=== PATIENT | female | born 2000 | race Caucasian/White ===

== ENCOUNTER 2024-06-05 15:49 | Emergency (ER) | payer OTHER, SELFPAY ==
--- OUTSIDE RECORDS SUMMARY | 2024-06-05 15:57 | XMS_ITS | Encounter Summary ---
Author Organization [facility] Address [address] [place] [address] Phone Care Team Providers Care Technical Training Instructor Name Role Phone Jasmina Serna APRN, CNP Primary Care Provid er Reason for Referral * Radiology Services (Routine) - Closed Specialty Diagnoses / Procedures Referred By Contac t Referred To Contact Radiology Diagnoses Chest pain, unspecified type Procedures XR CHEST 2 VIEWS Jasmina Serna APRN, CNP [address] [facility] [address] [place] [address] Phone: tel: fax: Referral ID Status Reason Start Date Expiration Date Visits Re quested Visits Authorized [id number] Closed 07/03/2021 1 1 Encounter Details Date Type Department Care Team (Late st Contact Info) Description 07/03/2021 Transcribe Orders [facility] Patient Access Admitting [address] [place] [address] Jasmina Serna APRN, CNP [address] [facility] [address] [place] [id number] Chest pain, unspecified type (Primary Dx) Social History Tobacco Use Types Packs/Day Years Used Date Smoking Tobacco: Never Assessed Comments Unknown Sex and Gender Information Value Date Recorded Sex Assigned at Not on file Legal Sex Female 11:04 PM CDT Gender Identity Not on file Sexual Orientation Not on file COVID-19 Exposure Response Date Recorded In the last 10 days, have yo u been in contact with someone who was confirmed or suspected to have Coronavirus/COVID-19? No / Unsure 07/02/2021 4:50 PM CDT documented as of this encounter Plan of Treatment Scheduled Orders Name Type Priority Associated Diagnoses Orde r Schedule XR CHEST 2 VIEWS Imaging Routine Chest pain, unspecified type Expected: 07/03/2021, Expires: 07/03/2022 documented as of this encounter Visit Diagnoses Diagnosis Chest pain, unspecified type- Primary documented in this encounter Additional Health Concerns Infection Onset Date Last Indicated Resolved Time COVID - 19 09/05/2021 09/05/2021 09/15/2021 12:1 6 AM CDT documented as of this encounter Care Teams Technical Training Instructor Relationship Specialty Start Date End Date Jasmina Serna I, SOLAR SYSTEMS DESIGNER, FRUIT OR NUT CROPS FARM MANAGER [address] [facility] [address] [place] [id number] PCP - General Advanced Practice Nurse 07/02/21 documented as of this encounter
--- OUTSIDE RECORDS SUMMARY | 2024-06-05 15:57 | XMS_ITS | Clinical Summary ---
Author Organization [facility] Address [address] [place] [address] Phone Care Team Providers Care Climatology Professor Name Role Phone Jasmina Serna APRN, CNP Primary Care Provid er Allergies Active Allergy Reactions Criticality Noted Date Comments Dust Mite Extract Other (see Comments) 04/26/19 14 Sneezing/ itching eyes Medications SUMAtriptan (IMITREX) 25 MG Tablet 1 tab PO prn severe headaches; may repeat in 2-4 H if no relief. No more than 2 tabs in 24H. 11/04/2016 Active Junel FE 04/12 1-20 MG-MCG Tablet Take 1 Tablet by mouth daily. 06/29/2021 Active famotidine (PEPCID) 20 MG Tablet TAKE 1 TABLET BY MOUTH TWICE A DAY BEFORE MEALS 07/02/2021 Active Active Problems Problem Noted Date Diagnosed Date Dysmenorrhea 06/30/2020 Sleep disturbance 10/30/2015 Chronic daily headache 04/17/2015 Overview (09/05/2021): Last Assessment & Plan: Headaches have improved and not as frequent or disabling. Will reduce amitriptyline dose as noted below and anticipate to wean her off the med at the time of her next visit. 1. Keep headache diary 2. Maintain active lifestyle 3. Eat healthy diet, and do not skip meals 4. Drink plenty of water, and avoid caffeine regularly. 5. Sleep: 1. Maintain good sleep routine. 2. Avoid distractions at bedtime such as TV, computer. 3. Get at least 8-10 hours of sleep nightly 6. Do not use pain medication (such as Tylenol, Ibuprofen) more than 2 times/week in order to avoid medication overuse headaches 7. Use analgesics as needed only for moderate-severe headaches. 8. Reduce amitriptyline 10 mg tabs to 2 tabs (20 mg) at bedtime. Take regularly and as prescribed. 9. Call in the interim for any worsening headaches, or other neurological concerns Dizziness and giddiness 04/17/2015 Overview (09/05/2021): Last Assessment & Plan: Dizziness/light headedness likely from relatively poor hydration. 1. Check orthostatics in the office today. 2. Encourage aggressive hydration. 3. Can try to increase salt intake. Immunizations Immunization Administration Dates Next Due Covid-19, Mrna, Lnp-s, PF, 1 00 mcg/0.5 mL Dose (Moderna) 07/31/2020,07/03/2020 DTAP VACCINE 02/25/2001, 1,03/20/2000,01/13 DTAP VACCINE, UNSPECIFIED FORMULATION 2004 HEP B/HIB Combined Vaccine 05/21/2000,01/14/2000 Hepatitis A Vaccine, Pediatric/adolescent, 2 Dose Schedule 10/13/2006,2004 Hepatitis B Vaccine, Pediatric/adolescent 1999 Hib Vaccine,unspecified Formulation 02/25/2001,1 1999 Human Papillomavirus Vaccine (HPV), quadrivalent 05/30/2014,01/25/2014,11/19/2013 Inactivated Polio Vaccine 2004,,03/20/2000,01/13 Influenza Vaccine Nasal 02/07/2012 Influenza Vaccine Quadrivalent Nasal 01/25/2014 Influenza Vaccine, Quadrivalent, PF 02/04/2020,0 04/16/2013 Influenza Vaccine,unspecifie d Formulation 12/27/2016 MMR Vaccine 2004,11/20/2000 Meningococcal Group B OMV 01/27/2017,12/27/2016 Meningococcal MCV4O 11/18/2012 Meningococcal Vaccine 11/17/2015 Pneumococcal Vaccine Peds - 7 Valent 11/20/2000, 08/05/2000,05/21/2000 TB Skin Test 12/14/2020,11/27/2019,11/13/2019 TDAP Vaccine 11/18/2012 Varicella Vaccine Live 04/14/2007,12/26/2000 Social History Tobacco Use Types Packs/Day Years Used Date Smoking Tobacco: Never Smokeless Tobacco: Never Comments No Sex and Gender Information Value Date Recorded Sex Assigned at Not on file Legal Sex Female 11:04 PM CDT Gender Identity Not on file Sexual Orientation Not on file Last Filed Vital Signs Vital Sign Reading Time Taken Comments Blood Pressure 112/60 09/05/2021 3:14 PM CDT Pulse 116 09/05/2021 3:14 PM CDT Temperature 38.2 C (100.7 F) 09/05/2021 3:14 PM CDT Respiratory Rate 20 09/05/2021 3:14 PM CDT Oxygen Saturation 98% 09/05/2021 3:14 PM CDT Inhaled Oxygen Concentration - - Weight 49.9 kg (110 lb) 09/05/2021 3:14 PM CDT Height - - Body Mass Index - - Plan of Treatment Health Maintenance Due Date Last Done Comments Hepatitis C Virus (HCV) Screening 2000 Pap Smear 11/13/2020 DTaP/Tdap/Td Immunization (7 - Td or Tdap) 11/18/2022 11/18/2012, 2004, 02/25/2001, Additional history exists Influenza Immunization (#1) 11/23/202301/22, 02/04/2020, 12/27/2016, Additional history exists SARS-COV-2 Immunization ( season) 2023 04/30/2021, 07/31/2020, 07/03/2020 Respiratory Syncytial Virus (RSV) Immunization (Adult) (1 - 1-dose 75+ series) 11/13/2074 Hepatitis B Immunization Completed 001, 01/14/2000, 1999 Pneumococcal Immunization Combined Aged Out 11/20/2000, 08/05/2000, 05/21/2000 No longer eligible based on patient's age to complete this topic Human Papillomavirus (HPV) Immunization Completed 05/30/2014, 01/25/2014, 11/19/2013 Meningococcal Immunization (ACWY) Completed 11/17/2015, 11/18/2012 Meningococcal B Immunization Discontinued 01/27/2017, 12/27/2016 Rotavirus Immunization Aged Out No lo nger eligible based on patient's age to complete this topic Insurance MEDICAID [employer] Care Teams Climatology Professor Relationship Specialty Start Date End Date Jasmina Serna APRN, GUN FERTILIZER [address] [facility] [address]Z [address] [place] [id number] PCP - General Advanced Practice Nurse 07/02/21
--- OUTSIDE RECORDS SUMMARY | 2024-06-05 15:57 | XMS_ITS | Referral Summary ---
Author Organization [facility] Address [address] [place] [address] Care Team Providers Care Curator Medical Museum Name Role Phone Adonay iHcks MD Primary Care Provider [phone] Source Comments [facility],non-owned Affiliates and Associated Physician Practices is amultiple site organization consisting of ambulatory clinics and hospital sitesin [place], [place], [place] and [place]. This disclosure is being madepursuant to the Care Everywhere program and may not contain all information available regarding this patient. Last updated 17.[facility] Allergies Active Allergy Reactions Criticality Noted Date Comments Dust Mite Extract Eye Itching 04/26/2013 sneezing Medications * Be aware that medications may not be up to date on this document. Alwaysverify current medications with the patient. Medication Sig Dispensed Refills Start Date End Date Status SUMAtriptan (IMITREX) 25 MG tabletIndications:Chicken Cleaner katharine daily headache 1 tab PO prn severe headaches; may repeat in 2-4 H if no relief. No more than 2 tabs in 24H. 9 Tab 2 11/04/2016 Active naproxen sodium (ANAPROX DS) 550 MG tabletIndications:Chicken Cleaner katharine daily headache Take 1 Tab by mouth 2 times daily as needed for Pain (moderate-severe headaces) 12 Tab 3 11/04/2016 Active Active Problems Problem Noted Date Diagnosed Date Sleep disturbance 10/30/2015 Chronic daily headache 04/17/2015 Assessment & Plan (11/04/2016 3:07 PM CDT): Headaches have improved and not as frequent [...] any worsening headaches, or other neurological concerns Assessment & Plan (05/06/2016 4:32 PM BOOSTER ASSEMBLER): Headaches have improved overall with improvement sin lifestyle, particularly sleep. Also has worked on improving coping skills. 1. Keep headache diary 2. Maintain active lifestyle - encourage starting with exercises as taught by PT prior to starting soccer season, to improve physical tolerability. 3. Eat healthy diet, and do not [...] order to avoid medication overuse headaches 7. May take Imitrex 25 mg tabs - 1 tab as needed for moderate-severe headaches. May repeat in 2-4 hours if no relief. No more than 2 tabs in 24 hours. 8. Continue with comfort measures for milder headaches. 9. Continue with amitriptyline 10 mg tabs - 3 tabs (30 mg) at bedtime. Take regularly and as prescribed. 10. Call in 4-6 weeks with update regarding headaches, sooner for concerns Assessment & Plan (10/30/2015 3:02 PM CDT): Chronic daily headaches,mostly tension type, worsened by lifestyle issues, likely sleep issues; tightened neck muscles which can be trigger points for the headaches. 1. Keep headache diary 2. Maintain active lifestyle 3. Eat healthy diet, and do not skip meals 4. Drink plenty of water, and avoid caffeine regularly. 5. Sleep: 1. Maintain good sleep routine. 2. Avoid distractions at bedtime such as TV, computer. 3. Get at least 8-10 hours of sleep nightly 4. Check iron level today in view of sleep related restlessness, excess fatigue. 6. Do not use pain medication (such as Tylenol, Ibuprofen) more than 2 times/week in order to avoid medication overuse headaches 7. Can try Imitrex 25 mg tabs - for more intense pain - 1 tab as needed for headaches. May repeat in 2-4 hours if no relief. No more than 2 tabs in 24 hours. 8. Continue with Amitriptyline 10 mg tabs - 3 tabs (30 mg) at bedtime. Take regularly and as prescribed. 9. Hand out on progressive muscle relaxation to relax neck muscles and refer to PT again. 10. Call in 4-6 weeks with update regarding headaches, sooner for concerns Assessment & Plan (04/17/2015 1:59 PM BOOSTER ASSEMBLER): Chronic daily headache, mostly tension type worsened by several lifestyle issues such as poor diet, hydration, sleep, neck muscle tightness and medication overuse. 1. Keep headache diary 2. Maintain active lifestyle 3. Eat healthy diet, and do not skip meals. Eat breakfast regularly. 4. Drink plenty of water, and avoid caffeine regularly. 5. Sleep: 1. Maintain good sleep routine. 2. Avoid distractions at bedtime such as TV, computer. 3. Get at least 8-10 hours of sleep nightly 4. Improve nighttime sleep - take Amitriptyline earlier and sleep it off. 5. Reduce daytime naps. 6. Do not use pain medication (such as Tylenol, Ibuprofen) more than 2-3 times/week in order to avoid medication overuse headaches 7. Use Anaprox DS 550 mg twice a day as needed only for headaches - take at onset of headache 8. Continue Amitriptyline 25 mg at bedtime. Take regularly and as prescribed. 9. Refer to Physical Therapy for neck muscle tightness. 10. Call in 3 weeks with update regarding headaches, sooner for concerns. Dizziness and giddiness 04/17/2015 Assessment & Plan (04/17/2015 2:01 PM BOOSTER ASSEMBLER): Dizziness/light headedness likely from relatively poor hydration. 1. Check orthostatics in the office today. 2. Encourage aggressive hydration. 3. Can try to increase salt intake. Social History Tobacco Use Types Packs/Day Years Used Date Smoking Tobacco: Never Smokeless Tobacco: Never Alcohol Use Standard Drinks/Week Comments No 0 (1 standard drink = 0.6 oz pur e alcohol) Sex and Gender Information Value Date Recorded Sex Assigned at Not on file Gender Identity Not on file Sexual Orientation Not on file Last Filed Vital Signs Vital Sign Reading Time Taken Comments Blood Pressure 110/72 11/08/2016 12:15 PM CDT Pulse 98 11/08/2016 12:15 PM CDT Temperature 37.4 C (99.3 F) 11/08/2016 12:15 PM CDT Respiratory Rate - - Oxygen Saturation - - Inhaled Oxygen Concentration - - Weight 48.1 kg (106 lb) 11/08/2016 12:15 PM CDT Height 159.4 cm (5' 2.75 ) 11/08/2016 12:15 PM C DT Body Mass Index 18.93 11/08/2016 12:15 PM CDT Plan of Treatment Not on file Care Teams Curator Medical Museum Relationship Specialty Start Date End Date Adonay Hicks MD [address] [place] [id number] PCP - General Pediatrics 04/23/13
--- OUTSIDE RECORDS SUMMARY | 2024-06-05 15:57 | XMS_ITS | Clinical Summary ---
Author Organization [facility] Address [address] [place] [address] Care Team Providers Care Advanced Manufacturing Technician Name Role Phone Jasmina Kerr NP Primary Care Provider [phone] Allergies Active Allergy Reactions Criticality Noted Date Comments Mite Extract Eye irritation,Other (See comments) Low 04/26/2013 sneezing Sneezing/ itching eyes Medications [facility] .5, 28, 1.5 mg-30 mcg (21)/75 mg (7) per tabletIndications: Dysmenorrhea,Pregn irina Contraception Take 1 tablet by mouth daily 84 tablet 3 4 Active Active Problems Problem Noted Date Diagnosed Date Encounter for surveillance of contraceptive pill s 11/26/2022 Assessment & Plan (11/26/2022 4:37 PM CDT): Doing well on current OC. Encouraged patient to continue to monitor cycles. If she experiences an increase in breakthrough bleeding or if menses starts during active pills, we will plan to try a different MAKENNA to ensure efficacy. For now she will continue 04/12. Will wait to refill OC at this time as patient has 2 packs left at home. Dysmenorrhea 06/30/2020 Encounters Date Type Department Care Team Description 03/18/2024 6:51 PM MANAGER OF OPERATIONS - 03/18/2024 11:59 PM MANAGER OF OPERATIONS [place] [address] Screening for STDs (sexually transmitted diseases); Well woman exam Discharge Disposition: Discharge to home or self care 03/18/2024 9:15 AM MANAGER OF OPERATIONS Office Visit [facility] [address] [place] [address] [address] [place] [address] Jessica Burkett NP Well woman exam (Primary Dx); Screening for STDs (sexually transmitted diseases) from Last 3 Months Social History Tobacco Use Types Packs/Day Years Used Date Smoking Tobacco: Never Smokeless Tobacco: Never Tobacco Cessation:Counseling Given: Not Answered AUDIT-C Answer Date Recorded Q1: How often do you have a drink containing alc ohol? Never 06/30/2020 Average Number of Drinks Not on file 021 Frequency of Binge Drinking Not on file 11/2020 PHQ-2 Answer Date Recorded PHQ-2 Total Score (If total score is 3 or more points, staff should administer the PHQ-9) 0 03/18/2024 Comments No Sex and Gender Information Value Date Recorded Sex Assigned at Not on file Legal Sex Female 11:34 AM MANAGER OF OPERATIONS Gender Identity Female 01/26/2023 9:48 AM MANAGER OF OPERATIONS Sexual Orientation Bisexual 01/26/2023 9: 48 AM MANAGER OF OPERATIONS Obstetrics History Para Term AB IAB SAB Ectopic Multiple Livin g Live Births 0 0 0 0 0 0 0 0 0 0 0 Last Filed Vital Signs Vital Sign Reading Time Taken Comments Blood Pressure 112/68 03/18/2024 9:12 AM MANAGER OF OPERATIONS Pulse 78 11/26/2022 1:38 PM CDT Temperature - - Respiratory Rate 18 12/07/2021 2:03 PM CDT Oxygen Saturation - - Inhaled Oxygen Concentration - - Weight 50.5 kg (111 lb 6.4 oz) 03/18/2024 9:12 A M MANAGER OF OPERATIONS Height 157.5 cm (5' 2 ) 03/18/2024 9:12 AM MANAGER OF OPERATIONS Body Mass Index 20.38 03/18/2024 9:12 AM MANAGER OF OPERATIONS Plan of Treatment Health Maintenance Due Date Last Done Comments Hepatitis C Screening 1999 DTaP/Tdap/Td Vaccine (7 - Td or Tdap) 11/18/2022 11/18/2012, 2004, 02/25/2001, Additional history exists Covid-19 Vaccine (3 2023-2 5 season) 2023 07/31/2020, 07/03/2020 Influenza Vaccine (#1) 2023 , 12/27/2016, 01/25/2014, Additional history exists Cervical Cancer Screening 03/18/20252023, 11/26/2022, 10/30/2021 Chlamydia and Gonorrhea (GC/ CT) Screening 03/18/2025 03/18/2024, 10/30/2021, 08/01/2021 Depression Screening 03/18/2025 03/18/2024, 11/26/2022, 10/30/2021, Additional history exists Regular Well Visit/Exam 18-64 03/18/2025, 11/26/2022, 10/30/2021 Hepatitis B Screening Completed 05/21/2000 , 01/14/2000, 1999 Pneumococcal vaccine <65 Completed 001, 08/05/2000, 05/21/2000 Varicella Vaccines Completed 04/14/2007, 12/26/2000 HPV Vaccines Completed 05/30/2014, 06/2013, 11/19/2013 Procedures Procedure Name Priority Date/Time Associated Diagnosis Comments THINPREP PROCESSING (MOLECULAR COMPONENT) Routine 03/18/2024 9:45 AM MANAGER OF OPERATIONS Well woman exam N. GONORRHOEAE/C. TRACHOMATIS AMPLIFICATION Routine 03/18/2024 9:45 AM MANAGER OF OPERATIONS PAP WITH REFLEX TO HIGH RISK HPV Routine 03/18/2024 8:36 AM MANAGER OF OPERATIONS Well woman exam from Last 3 Months Results * ThinPrep processing (Molecular component) (03/18/2024 9:45 AM MANAGER OF OPERATIONS) ThinPrep processing (Molecular component) Specimen received for processing. [facility] Comment:Testing performed by : [facility], [address] [place]., [address] Endocervical 03/18/2024 9:45 AM MANAGER OF OPERATIONS 03/19/2024 11:05 AM MANAGER OF OPERATIONS Jessica Burkett NP LAB BODY FLUIDS AND STOOLS ORDER ROSA Final Result Performing Organization Address City/[facility]/ZIP Co de Phone Number [facility] [address] [place] [address] BJ * N. gonorrhoeae/C. trachomatis Amplification Thin prep-Endocervical (03/18/2024 9:45 AM MANAGER OF OPERATIONS) C. trachomatis Not Detected [facility] Comment:Testing performed by : [facility], [address] [place]., [address] N. gonorrhoeae Not Detected [facility] Comment: Interpretive Data This assay detects Chlamydia trachomatis and Neisseria gonorrhoeae by nucleic acid amplification testing (NAAT). This assay has been cleared by the [place] Food and Drug administration. The performance characteristics of this test have been verified by the [facility] Molecular Infectious Disease laboratory. The performance characteristics of this test have not been evaluated in individuals less than 14 years of age. Current Interpretive Data was last revised on 2023. Testing performed by: [facility], [address] [place] [address]., [id number] Thin prep-Endocervica l 03/18/2024 9:45 AM MANAGER OF OPERATIONS 03/19/2024 11:05 AM MANAGER OF OPERATIONS Jessica Burkett NP LAB MICROBIOLOGY - GENERAL ORDER ROSA Final Result [facility] [address] [place] [address] [facility] * Pap with reflex to High Risk HPV and Genotyping (Cytology Component) (03/18/2024 8:36 AM MANAGER OF OPERATIONS) Thin prep (Pap test) 03/18/2024 8:36 AM MANAGER OF OPERATIONS 03/18/2024 8:36 AM MANAGER OF OPERATIONS Narrative PATHOLOGY CH - 03/22/2024 9:17 AM MANAGER OF OPERATIONS [facility] Department of Pathology [address] [place] [address] Final Report Note to Patients: This report may contain a detailed description of human tissue sent by a health care provider to the laboratory for pathologic evaluation. The content of this report is essential for diagnosis and may provide important critical findings. This information may be unfamiliar to patients to review without a medical professional present. It is advised that the patient review this report in the presence of a health care provider who can answer questions and explain the details. Patient Name: JO-ANN BRICE Address: [address] [place] [address] Gender: F : 2000 (Age: 23) Service: Location: N : [id number] Hospital #: [id number] Patient Type: SPECIMEN Taken: 03/18/2024 Received: 03/18/2024 Accessioned:: 03/19/2024 Reported: 03/22/2024 Physician(s): RASHID Laird FNP Diagnosis: SOURCE OF SPECIMEN Imaged Thinprep Pap Test w/ Reflex HPV - Pneudraulic Systems Mechanic Cytologic Material: STATEMENT OF ADEQUACY - Specimen satisfactory for interpretation; endocervical/transformation zone component absent or insufficient GENERAL CATEGORIZATION: - Negative for intraepithelial lesion or malignancy BERTHA Vincetn(ASCP) Report Electronically Reviewed and Signed Out By BERTHA Vincent(ASCP) 03/22/2024 09:17:13Specimen(s) Received: A: Imaged Thinprep Pap Test w/ Reflex HPV - Pneudraulic Systems Mechanic Cytologic Material Clinical History: Last Menstrual Period: 03/02/24 The Pap test is a screening test used to aid in the detection of cervical cancer and its precursors. It should not be the sole means by which malignant and premalignant lesions are diagnosed. Both false negative and false positive results may occur. It also has poor sensitivity for the detection of endometrial lesions and should not be used to evaluate suspected endometrial abnormalities. For these reasons it is most important to obtain Pap tests at regular intervals. The performance characteristics of some immunohistochemical stains, fluorescence in-situ hybridization tests and immunophenotyping by flow cytometry cited in this report (if any) were determined by the Surgical Pathology Department at [facility] as part of an ongoing manufacturing quality inspector program and in compliance with federally mandated regulations drawn from the Clinical Laboratory Improvement Act of 1988 (CLIA '88). Some of these tests rely on the use of analyte specific reagents and are subject to specific labeling requirements by the [place] Food and Drug Administration. Such diagnostic tests may only be performed in a facility that is certified by the Department of Health and Human Services as a high complexity laboratory under CLIA '88. The FDA has determined that such clearance or approval is not necessary. This test is used for clinical purposes. It should not be regarded as investigational or for research. Nevertheless, federal rules concerning the medical use of analyte specific reagents require that the following disclaimer be attached to the report: This test was developed and its performance characteristics determined by the Surgical Pathology Department [facility]. It has not been cleared or approved by the U. S. Food and Drug Administration. Jessica Burkett NP LAB CYTOLOGY ORDERABLES Final [facility] Organization Address City/State/[facility] Co de Phone Number PATHOLOGY [address] [place] [address] from Last 3 Months Insurance [facility] Care Teams Advanced Manufacturing Technician Relationship Specialty Start Date End Date Jasmina Kerr NP [address] [facility] [address] [address] [place] [address] PCP - General Family Medicine 07/13/21
--- OUTSIDE RECORDS SUMMARY | 2024-06-05 15:57 | XMS_ITS | Patient Health Summary ---
Author Organization [facility] Address [address] [place] [address] Care Team Providers Care Fur Glosser Name Role Phone Adonay Hicks MD Primary Care Provider Note from [facility],non-owned Affiliates and Associated Physician Practices is amultiple site organization consisting of ambulatory clinics and hospital sitesin [place], [place] and [place]. This disclosure is being madepursuant to the Care Everywhere program and may not contain all information available regarding this patient. Last updated 17.[facility] Allergies * Dust Mite Extract(Eye Itching) Medications * Be aware that medications may not be up to date on this document. Alwaysverify current medications with the patient. * SUMAtriptan (IMITREX) 25 MG tablet(Started 11/04/2016) 1 tab PO prn severe headaches; may repeat in 2-4 H if no relief. No more than 2 tabs in 24H. 2 refills remaining * naproxen sodium (ANAPROX DS) 550 MG tablet(Started 11/04/2016) Take 1 Tab by mouth 2 times daily as needed for Pain (moderate-severe headaces) 3 refills remaining Active Problems Problem Noted Date Diagnosed Date Sleep disturbance 10/30/2015 Chronic daily headache 04/17/2015 Dizziness and giddiness 04/17/2015 Social History Tobacco Use Types Packs/Day Years [...] Mass Index 18.93 11/08/2016 12:15 PM CDT Procedures * FERRITIN(Performed 10/30/2015) Performed for Chronic daily headache, Sleep disturbance Results * FERRITIN (10/30/2015 3:20 PM CDT) Ferritin 22 10 - 140 ng/mL 10/30/2015 4:19 PM CDT [facility] Blood BLOOD SPECIMEN / Unknown Lab Venipuncture / Unknown 10/30/2015 3:20 PM CDT 10/30/2015 3:25 PM CDT Sarah Chávez MD LAB - CHEMISTRY CARLOS HANNON Performing Organization Address City/State/[facility] Co de Phone Number [facility] [address] [place] [address] Care Teams Fur Glosser Relationship Specialty Start Date End Date Adonay Hicks MD [address] [place] [id number] PCP - General Pediatrics 04/23/13
--- OUTSIDE RECORDS SUMMARY | 2024-06-05 15:57 | XMS_ITS | Referral Summary ---
Author Organization [facility] Address [address] [place] [address] Care Team Providers Care News Commentator Name Role Phone Jasmina Kerr NP Primary Care Provider [phone] Encounters Date Type Department Care Team Description 03/18/2024 6:51 PM AIR CREW OFFICER - 03/18/2024 11:59 PM AIR CREW OFFIC[place] [address] Screening for STDs (sexually transmitted diseases); Well woman exam Discharge Disposition: Discharge to home or self care 03/18/2024 9:15 AM AIR CREW OFFICER Office Visit [facility] [address] [place] [address] Jessica Burkett NP Well woman exam (Primary Dx); Screening for STDs (sexually transmitted diseases) from Last 3 Months Allergies Active Allergy Reactions Criticality Noted Date Comments Mite Extract Eye irritation,Other (See comments) Low 04/26/2013 sneezing Sneezing/ itching eyes Medications Arely Ray 1.5/30, 28, 1.5 mg-30 mcg (21)/75 mg (7) [...] 2 packs left at home. Dysmenorrhea 06/30/2020 Social History Tobacco Use Types Packs/Day Years [...] on file Legal Sex Female 11:34 AM AIR CREW OFFICER Gender Identity Female 01/26/2023 9:48 AM AIR CREW OFFICER Sexual Orientation Bisexual 01/26/2023 9: 48 AM AIR CREW OFFICER Last Filed Vital Signs Vital Sign Reading Time Taken Comments Blood Pressure 112/68 03/18/2024 9:12 AM AIR CREW OFFICER Pulse 78 11/26/2022 1:38 PM CDT Temperature - - Respiratory Rate 18 12/07/2021 2:03 PM CDT Oxygen Saturation - - Inhaled Oxygen Concentration - - Weight 50.5 kg (111 lb 6.4 oz) 03/18/2024 9:12 A M AIR CREW OFFICER Height 157.5 cm (5' 2 ) 03/18/2024 9:12 AM AIR CREW OFFICER Body Mass Index 20.38 03/18/2024 9:12 AM AIR CREW OFFICER Plan of Treatment Not on file Procedures Procedure Name Priority Date/Time Associated Diagnosis Comments THINPREP PROCESSING (MOLECULAR COMPONENT) Routine 03/18/2024 9:45 AM AIR CREW OFFICER Well woman exam N. GONORRHOEAE/C. TRACHOMATIS AMPLIFICATION Routine 03/18/2024 9:45 AM AIR CREW OFFICER PAP WITH REFLEX TO HIGH RISK HPV Routine 03/18/2024 8:36 AM AIR CREW OFFICER Well woman exam from Last 3 Months Results * ThinPrep processing (Molecular component) (03/18/2024 9:45 AM AIR CREW OFFICER) ThinPrep processing (Molecular component) Specimen received for processing. LOCATED WITHIN [facility] Comment:Testing performed by : [facility], [address] [place]., [address] Endocervical 03/18/2024 9:45 AM AIR CREW OFFICER 03/19/2024 11:05 AM AIR CREW OFFICER Jessica Burkett NP LAB BODY FLUIDS AND STOOLS ORDER ROSA Final Result CECIL TODD [id number] [address] Department [place] [address] LOCATED WITHIN [facility] * N. gonorrhoeae/C. trachomatis Amplification Thin prep-Endocervical (03/18/2024 9:45 AM AIR CREW OFFICER) C. trachomatis Not Detected LOCATED [facility]IN [facility] Comment:Testing performed by : [facility], [address] [place] [address]., [id number] N. gonorrhoeae Not Detected [facility] Comment: Interpretive Data This assay detects Chlamydia trachomatis and Neisseria gonorrhoeae by nucleic acid amplification testing (NAAT). This assay has been cleared by the [place] Food and Drug administration. The performance characteristics of this test have been verified by the [facility] Molecular Infectious Disease laboratory. The performance characteristics of this test have not been evaluated in individuals less than 14 years of age. Current Interpretive Data was last revised on 2023. Testing performed by: [facility], [address] [place]., [address] Thin prep-Endocervica l 03/18/2024 9:45 AM AIR CREW OFFICER 03/19/2024 11:05 AM AIR CREW OFFICER us Jessica Burkett NP LAB MICROBIOLOGY - GENERAL ORDER ROSA Final Result CECIL [address] [facility] Department [place] [address] BJ * Pap with reflex to High Risk HPV and Genotyping (Cytology Component) (03/18/2024 8:36 AM AIR CREW OFFICER) Thin prep (Pap test) 03/18/2024 8:36 AM AIR CREW OFFICER 03/18/2024 8:36 AM AIR CREW OFFICER Narrative PATHOLOGY CH - 03/22/2024 9:17 AM AIR CREW OFFICER [facility] Department of Pathology [address] [place] [address] Final Report Note to Patients: This report [...] the details. Patient Name: JO-ANN BRICE Address: [address] [place] [address] Gender: F : 2000 (Age: 23) Service: Location: N : [id number] [facility] #: [id number] Patient Type: SPECIMEN Taken: 03/18/2024 Received: 03/18/2024 Accessioned:: 03/19/2024 Reported: 03/22/2024 Physician(s): RASHID Laird FNP Diagnosis: SOURCE OF SPECIMEN Imaged Thinprep Pap Test w/ Reflex HPV - Clinical Medical Transcriptionist Cytologic Material: STATEMENT OF ADEQUACY - Specimen satisfactory for interpretation; endocervical/transformation zone component absent or insufficient GENERAL CATEGORIZATION: - Negative for intraepithelial lesion or malignancy BERTHA Vinecnt(ASCP) Report Electronically Reviewed and Signed Out By BERTHA Vincent(ASCP) 03/22/2024 09:17:13Specimen(s) Received: A: Imaged Thinprep Pap Test w/ Reflex HPV - Clinical Medical Transcriptionist Cytologic Material Clinical History: Last Menstrual Period: [...] determined by the Surgical Pathology Department at [facility] as part of an ongoing quality assurance assistant program and in compliance with federally mandated [...] characteristics determined by the Surgical Pathology Department [facility]. It has not been cleared or approved by the [place]. [place]. Food and Drug Administration. Jessica Burkett NP LAB CYTOLOGY ORDERABLES Final Re sult PATHOLOGY [address] [place] [address] from Last 3 Months Insurance [facility] Care Teams News Commentator Relationship Specialty Start Date End Date Jasmina Kerr NP [address] [place] [address] [address] PCP - General Family Medicine 07/13/21
--- OUTSIDE RECORDS SUMMARY | 2024-06-05 15:57 | XMS_ITS | Clinical Summary ---
Author Organization [facility] Address [address] [place] [address] Care Team Providers Care Fun House Operator Name Role Phone Adonay Hicks MD Primary Care Provider [phone] Source Comments [facility],non-owned Affiliates and Associated Physician Practices is amultiple site organization consisting of ambulatory clinics and hospital sitesin [place], [place], [place] and [place]. This disclosure is being madepursuant to the Care Everywhere program and may not contain all information available regarding this patient. Last updated 17.[facility] Allergies Active Allergy Reactions Criticality Noted Date Comments Dust Mite Extract Eye Itching 04/26/2013 sneezing Medications * Be aware that medications may not be up to date on this document. Alwaysverify current medications with the patient. Medication Sig Dispensed Refills Start Date End Date Status SUMAtriptan (IMITREX) 25 MG tabletIndications:Tablet Coater katharine daily headache 1 tab PO prn severe headaches; may repeat in 2-4 H if no relief. No more than 2 tabs in 24H. 9 Tab 2 11/04/2016 Active naproxen sodium (ANAPROX DS) 550 MG tabletIndications:Tablet Coater katharine daily headache Take 1 Tab by [...] concerns Assessment & Plan (05/06/2016 4:32 PM COLLAR WORKER): Headaches have improved overall with improvement sin [...] concerns Assessment & Plan (04/17/2015 1:59 PM COLLAR WORKER): Chronic daily headache, mostly tension type worsened [...] 04/17/2015 Assessment & Plan (04/17/2015 2:01 PM COLLAR WORKER): Dizziness/light headedness likely from relatively poor hydration. [...] 11/08/2016 12:15 PM CDT Plan of Treatment Health Maintenance Due Date Last Done Comments PAP SMEAR 2000 HIV SCREENING 11/13/2014 HPV VACCINE (1 - 3-dose series) 11/13/2014 CHLAMYDIA/GONORRHEA SCREENING 2015 HEPATITIS C SCREENING 11/09/2017 DTAP/TDAP/TD VACCINES (1 - Tdap) 11/13/2018 HEPATITIS B VACCINE (1 of 3 - 19+ 3-dose series) 11/13/2018 COVID-19 VACCINE (1 - 2023-2 5 season) 2023 INFLUENZA VACCINE (#1) 2023 DEPRESSION SCREENING 03/24/2024 ZOSTER VACCINE (1 of 2) 11/13/2049 HIB VACCINE Aged Out No longer eligi ble based on patient's age to complete this topic MENINGOCOCCAL (Group B) VACC INE SHARED DECISION-MAKING Aged Out No longer eligibl e based on patient's age to complete this topic MENINGOCOCCAL GROUPS A/C/Y/W VACCINE Aged Out No longer eligible b ased on patient's age to complete this topic PNEUMOCOCCAL VACCINE Aged Out No long er eligible based on patient's age to complete this topic Care Teams Fun House Operator Relationship Specialty Start Date End Date Adonay Hicks MD [address] [place] [address] PCP - General Pediatrics 04/23/13
[2024-06-05 15:58] VITALS: BP 151/80; PULSE 104; RESP 18; TEMP 37.2; O2SAT 100
--- NOTE | 2024-06-05 16:07 | ED_ITS ---
HPI - General Adult General Chief complaint: Upper Respiratory Infection Stated complaint: Sore Throat Time Seen by Provider: 06/05/24 16:09 Source: patient, RN notes reviewed and old records reviewed Mode of arrival: ambulatory Limitations: no limitations History of Present Illness HPI narrative: 23 year old female presents to [facility] care with complaints of sore throat for the past 6 days that did get a little better and then for the past 2 days pain has gotten worse to her throat, Patient reports that she has had some sinus congestion, denies any cough and unknown if fevers since she has been taking DayQuil pretty much around the clock. Patient reports no know ill exposure. Patient reports that she has pain and swelling to the lymph nodes in her neck which are painful. MD complaint: sore throat Onset (ago): day(s) (6) Severity: moderate Treatments prior to arrival: other (DayQuil) Related Data Allergies Allergy/AdvReac Type Severity Reaction Status Date / Time No Known Allergies Allergy Verified 06/05/24 16:02 Review of Systems Review of Systems: CONSTITUTIONAL: Reports malaise,no chills, sweats, or known fever. EYES: Denies visual changes, redness, or discharge. ENT: Reports rhinorrhea, congestion, sinus pain, otalgia and sore throat. CARDIOVASCULAR: Denies chest pain, palpitations, or edema. RESPIRATORY: Reports cough.? Denies dyspnea. GASTROINTESTINAL: Denies abdominal pain, nausea, vomiting, diarrhea SKIN: Denies rash or itching. MUSCULOSKELETAL: Denies myalgia. NEUROLOGIC: Denies headache. All systems reviewed & are unremarkable except as noted in HPI and below PMFSH Social History Social History (Updated 06/07/24 @ 11:12 by Violet Fagan NP) Smoking status: Never smoker Alcohol intake: never Substance use: never Living arrangements: with family Gender identity (if verbalized by the patient): Female Comments At time of signature, agree with nursing past medical, surgical, social and family history. There is no relevant family history pertinent to the presenting complaint Exam Narrative: GENERAL: Ill-appearing, well-nourished, and in no acute distress. HEAD: Normocephalic EYES: PERRLA, conjunctivae clear ENT: Nares clear, turbinates edematous and erythematous, clear discharge. Mucous membranes moist. TM [place] with dull light reflex bilaterally; no tragal tenderness. Oropharynx erythematous without lesions. Tonsils red enlarged and without exudate, no drooling, no hoarseness, no trismus, uvula midline.some post nasal drainage NECK: Supple. bilateral painful lymphadenopathy CHEST: Clear to auscultation, breath sounds equal. No wheezing, rhonchi, rales, or stridor. No respiratory distress, speaks in full sentences.no acute cough noted.SAO2 100% on room air HEART: Regular rate and rhythm. No murmur heard. SKIN: Warm, dry, no rash. NEURO: Alert and oriented x3. PSYCH: Normal mood and affect Course Course Emergency Course: Patient is aware of diagnosis, understands and agrees to treatment plan.? Anticipatory guidance given.? Patient agrees to follow-up as directed and is aware of reasons to seek care at the emergency department. Portions of this record may have been created with voice recognition software Level of Care: Express Care Visit Vital Signs Vital signs: Vital Signs Temperature 37.2 C 06/05/24 15:58 Pulse Rate 104 H 06/05/24 15:58 Respiratory Rate 18 06/05/24 15:58 Blood Pressure 151/80 H 06/05/24 15:58 Pulse Oximetry 100 06/05/24 15:58 Oxygen Delivery Room Air 06/05/24 15:58 Temperature 37.2 C 06/05/24 15:58 Pulse Rate 104 H 06/05/24 15:58 Respiratory Rate 18 06/05/24 15:58 Blood Pressure 151/80 H 06/05/24 15:58 Pulse Oximetry 100 06/05/24 15:58 Oxygen Delivery Room Air 06/05/24 15:58 Reviewed Medical Decision Making Differential Diagnosis Differential Diagnosis: URI,strep pharyngitis, tonsillitis, pharyngitis, mononucleosis, acute tonsillar lymphadenopathy, tonsillitis. Medical Records Medical records reviewed: Yes I reviewed the external patient's medical records. Vital Signs Vital Signs: Vital Signs Temperature 37.2 C 06/05/24 15:58 Pulse Rate 104 H 06/05/24 15:58 Respiratory Rate 18 06/05/24 15:58 Blood Pressure 151/80 H 06/05/24 15:58 Pulse Oximetry 100 06/05/24 15:58 Oxygen Delivery Room Air 06/05/24 15:58 Temperature 37.2 C 06/05/24 15:58 Pulse Rate 104 H 06/05/24 15:58 Respiratory Rate 18 06/05/24 15:58 Blood Pressure 151/80 H 06/05/24 15:58 Pulse Oximetry 100 06/05/24 15:58 Oxygen Delivery Room Air 06/05/24 15:58 reviewed Lab Data Lab results reviewed: Yes I reviewed the patient's lab results. Lab results narrative: strep screen negative, culture sent, Influenza A negative, Influenza B negative, COVID antigen negative, [place] screen negative Labs: Lab Results 06/05/24 06/05/24 Range/Units 16:17 16:29 POC Monoscreen Negative (Negative) POC Influenza A Ag Negative (Negative) POC Influenza B Ag Negative (Negative) POC SARS CoV-2 Ag Negative (Negative) POC Grp A Strep Screen Negative (Negative) reviewed Critical Care Time Critical Care Time Critical Care Time: No Discharge Plan Discharge Clinical Impression: Acute tonsillitis Qualifiers: Pharyngitis/tonsillitis etiology: unspecified etiology Qualified Code(s): J03.90 - Acute tonsillitis, unspecified Patient Disposition: Home, Self-Care Condition: Stable Instructions: Antibiotic Form, Tonsillitis (ED) Additional Instructions: . Take the entire course of antibiotics. Throw away your current toothbrush and begin using a new toothbrush in 48 hours in order to prevent re-infection. Sanitize all reusable water bottles . Do not share items with others. Salt water gargles may alleviate some of the throat discomfort. You can take Tylenol or ibuprofen per the package instructions for pain/fever. Zyrtec Claritin or Rochelle daily strep culture sent If your symptoms persist, change or worsen significantly before you can contact your personal physician then please, without delay, go to the emergency department for further evaluation. Follow-up with PCP in 7-10 days or sooner if needed Follow up with PCP soon in regards to your blood pressure which is elevated above threshold for referral. Blood pressure above 120/80 may indicate pre- hypertension.151/80 Patient Language: Portuguese Prescriptions: New amoxicillin 500 mg capsule 500 mg PO Q12H Qty: 20 0RF methylprednisolone [Medrol (Luis)] 4 mg tablets,dose pack See Rx Instructions .ROUTE .COMPLEX Qty: 21 0RF Rx Instructions: orally per package directions Follow-up/Referrals: PHYSICIAN NOT ON STAFF,NONSTAFF [Primary Care Provider] - Time of Disposition: 16:33 Quality [place] Coma Scale Eyes: Open Verbal: Oriented and Alert Motor: Follows Commands [place] Coma Total Score: 15
[2024-06-05 16:19] LABS: EDSTREPNEGPOS1 Negative (Negative)
[2024-06-05 16:37] LABS: EDCOVIDSCREEN Negative (Negative); EDINFLUASCREEN Negative (Negative); EDINFLUBSCREEN Negative (Negative); EDMONONEGPOS Negative (Negative)
== END 2024-06-05 16:38 | disposition home or self-care (01) ==
PROVIDERS: Emergency Provider Registered Nurse
DX: J03.90 Acute tonsillitis, unspecified (principal); Z20.822 Contact with and (suspected) exposure to COVID-19
CPT/HCPCS: 36416; 86308; 87081; 87426; 87804; 87880; 99203; G0463